=== PATIENT | male | born 1985 | race Caucasian/White ===

== ENCOUNTER 2017-04-02 01:24 | Emergency (ER) | payer SELFPAY ==
[~2017-04-02] VITALS: Ht 175.3 cm; Wt 72.6 kg
[2017-04-02] MEDS ORDERED: ALLEGRA-D 12 H1 EACH PO (01:56)
--- NOTE | 2017-04-02 02:07 | Emergency Room Report ---
History of Present Illness General Chief Complaint: Dizziness Source: Patient Present Illness HPI Patient with several months of chronic sinusitis and dizziness. To see ENT next week. Tonight was anxious and had some dyspnea and palpitations. Prior use of steroid was effective in decreasing sy. Not on steroids now. Dizziness is somewhat vertiginous. No headache, fever, NVD. No colored d/c from nose. Some fullness in sinuses. No rashes, change vision, sore throat, dysuria. No numbness or weakness. Allergies: Coded Allergies: No Known Allergies (Unverified , 04/02/17) Patient History Past Medical History: see triage record Social History: Reports: smoking - occasional Social History Narrative home Reviewed Nursing Documentation: PMH: Agreed, PSxH: Agreed Nursing Documentation-PMH Past Medical History: No Stated History Review of Systems All Other Systems: negative except mentioned in HPI Physical Exam Vital Signs Date Time Temp Pulse Resp B/P Pulse Ox O2 Delivery O2 Flow Rate FiO2 04/02/17 01:50 98.1 88 16 132/98 98 Room Air Sp02 EP Interpretation: reviewed, normal General Appearance: well appearing, no apparent distress, GCS 15 Head: normocephalic, atraumatic Eyes: bilateral eye EOMI - no nystagmus, bilateral eye PERRL, bilateral eye normal inspection ENT: hearing grossly normal, normal pharynx, no angioedema, normal voice, TMs + canals normal, moist mucus membranes, nasal congestion Neck: full range of motion, supple Respiratory: lungs clear, normal breath sounds, no respiratory distress, speaking full sentences Cardiovascular #1: regular rate, rhythm Cardiovascular #2: 2+ radial (R) Gastrointestinal: normal inspection Musculoskeletal: no calf tenderness Neurologic: alert, oriented x3, upholstery sewer III-XII nml as tested, motor strength/tone normal, DTRs symmetric, sensory intact, cerebellar normal, normal gait, speech normal Psychiatric: mood/affect normal - slightly anxious Skin: no rash Medical Decision Making Diagnostic Impression: Primary Impression: Vertigo Additional Impression: Chronic sinusitis Qualified Codes: J32.0 - Chronic maxillary sinusitis ER Course Patient with dizziness. Also some dyspnea tonight with nausea which is improved. H/O chronic sinusitis. No evidence of acute infection (no fever, TMs normal). DDx hyperventilation, sinusitis, serous otitis, vertigo, anxiety, viral syndrome amongst others. Neurologic exam normal. Patient improved from presenting sy. Treat here with zofran. Improved. Patient stable for outpatient observation and treatment. Last Vital Signs Date Time Temp Pulse Resp B/P Pulse Ox O2 Delivery O2 Flow Rate FiO2 04/02/17 02:27 78 16 132/98 97 Room Air 04/02/17 02:22 98.1 Status: improved Disposition: HOME, SELF-CARE Condition: Improved Scripts Hydroxyzine Hcl (HYDROXYZINE HCL) 25 Mg Tablet 25 MG PO Q8HR Y for dizziness, #10 TAB Prov: Hector Mittal M.D. 04/02/17 Ondansetron Odt* (ZOFRAN ODT*) 4 Mg Tab.rapdis 4 MG ORAL Q6H Y for Nausea & Vomiting, #6 TAB 0 Refills Prov: Hector Mittal M.D. 04/02/17 Hector Mittal M.D. Apr 02, 2017 02:07
[2017-04-02] MEDS ORDERED: ZOFRAN ODT4 MG ORAL (02:09)
[2017-04-02] MEDS ORDERED: HYDROXYZINE HCL25 M1 PO (02:09)
[2017-04-02 02:22] VITALS: BP 132/98
[2017-04-02 02:27] VITALS: BP 132/98
== END 2017-04-02 02:31 | disposition home or self-care (01) ==
LOC: EMR 02:09
DX: R42 Dizziness and giddiness (principal); J32.0 Chronic maxillary sinusitis
CPT/HCPCS: 99284